=== PATIENT | male | born 1970 | race Caucasian/White ===

== ENCOUNTER 2016-10-14 11:50 | Emergency (ER) | payer OTHER ==
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
== END 2016-10-14 12:57 | disposition home or self-care (01) ==
LOC: CFTX 11:50
DX: S62.306A Unspecified fracture of fifth metacarpal bone, right hand, initial encounter for closed fracture (principal); J06.9 Acute upper respiratory infection, unspecified; W22.01XA Walked into wall, initial encounter; Y92.9 Unspecified place or not applicable
CPT/HCPCS: 29125; 73130; 99283

== ENCOUNTER 2016-10-16 23:59 | Emergency (ER) | payer OTHER | END 2016-10-17 01:15 | disposition home or self-care (01) | LOC: CFTX 23:59 | DX: J30.2 Other seasonal allergic rhinitis (principal); S62.336D Displaced fracture of neck of fifth metacarpal bone, right hand, subsequent encounter for fracture with routine healing; W22.01XD Walked into wall, subsequent encounter | CPT/HCPCS: 99283 ==

== ENCOUNTER 2016-11-23 14:29 | Emergency (ER) | payer OTHER | END 2016-11-23 18:21 | disposition left against medical advice (07) | LOC: CED 14:29 | DX: Z53.21 Procedure and treatment not carried out due to patient leaving prior to being seen by health care provider (principal) ==

== ENCOUNTER 2016-12-22 11:11 | Emergency (ER) | payer OTHER ==
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
== END 2016-12-22 14:25 | disposition home or self-care (01) ==
LOC: CED 11:11
DX: S22.32XA Fracture of one rib, left side, initial encounter for closed fracture (principal); S61.451A Open bite of right hand, initial encounter; S00.83XA Contusion of other part of head, initial encounter; F17.210 Nicotine dependence, cigarettes, uncomplicated; Z23 Encounter for immunization; Y08.89XA Assault by other specified means, initial encounter; Y92.410 Unspecified street and highway as the place of occurrence of the external cause
CPT/HCPCS: 70450; 70486; 71101; 72125; 73030; 90471; 90715; 99284